=== PATIENT | female | born 1985 | race Caucasian/White ===

== ENCOUNTER → 2022-11-05 12:35 | Outpatient (CLI) | payer BC, SELFPAY ==
--- NOTE | 2022-11-05 12:38 | DI.RAD.S_ITS ---
PROCEDURE: XR WRIST RT MIN 3V INDICATIONS: Wrist pain TECHNIQUE: 4 views of the wrist were acquired. COMPARISON: None. FINDINGS: Bones: No fractures or dislocations. No suspicious bony lesions. Scaphoid view: No fracture. Soft tissues: No suspicious soft tissue calcifications. IMPRESSION: No acute fracture or dislocation. Dictated by: Viet Butterfield M.D. on 11/05/2022 at 15:32 Approved by: Viet Butterfield M.D. on 11/05/2022 at 15:33
--- NOTE | 2022-11-05 12:38 | DI.RAD.S_ITS ---
PROCEDURE: XR FOREARM RT 2V INDICATIONS: Forearm pain TECHNIQUE: 2 views of the forearm were acquired. COMPARISON: None. FINDINGS: Bones: No fractures or dislocations. No suspicious bony lesions. Soft tissues: No suspicious soft tissue calcifications or masses. IMPRESSION: No acute fracture or dislocation. If pain persists with conservative management, consider repeat x-ray in 10-14 days. Dictated by: Viet Butterfield M.D. on 11/05/2022 at 15:31 Approved by: Viet Butterfield M.D. on 11/05/2022 at 15:32
== END ==
PROVIDERS: Referring Provider Nurse Practitioner Family; Visit Provider Nurse Practitioner Family
DX: S49.90XA Unspecified injury of shoulder and upper arm, unspecified arm, initial encounter (principal); M25.531 Pain in right wrist; M79.631 Pain in right forearm
CPT/HCPCS: 73090; 73110